=== PATIENT | male | born 1960 | race Caucasian/White ===

== ENCOUNTER 2021-06-05 16:59 | Emergency (ER) | payer BC, OTHER ==
[~2021-06-05] VITALS: Ht 193 cm; Wt 135.2 kg
[2021-06-05 17:25] VITALS: BP 140/58
[2021-06-05] MEDS ORDERED: LIDOCAINE 1% HCL (LOCAL ANESTH.) INJ 20ML MDV IJ ONE (17:30)
[2021-06-05] MEDS ORDERED: TETANUS-DIPTH-ACEL PERTUSSIS 0.5ML SYR Tdap IM ONE (18:00)
[2021-06-05] MEDS ORDERED: CEPH500T PO (18:08)
== END 2021-06-05 18:13 | disposition home or self-care (01) ==
LOC: ER 16:59
DX: S81.811A Laceration without foreign body, right lower leg, initial encounter (principal); E11.9 Type 2 diabetes mellitus without complications; I10 Essential (primary) hypertension; Z98.61 Coronary angioplasty status; W26.9XXA Contact with unspecified sharp object(s), initial encounter; Y93.89 Activity, other specified; Y92.89 Other specified places as the place of occurrence of the external cause; Y99.8 Other external cause status
CPT/HCPCS: 12004; 90471; 90715; 99283; J2001

== ENCOUNTER 2022-02-26 11:08 | Emergency (ER) | payer BC ==
[~2022-02-26] VITALS: Ht 193 cm; Wt 136.6 kg
[~2022-02-26 11:08] MED LIST: CEPH500T PO
[2022-02-26] MEDS ORDERED: PANTOPRAZOLE 40 MG/10 ML VIAL INJ IV ONE (11:45)
[2022-02-26] MEDS ORDERED: ONDANSETRON HCL 4 MG/2 ML VIAL IV ONE ×2 (11:45→20:00)
[2022-02-26] MEDS ORDERED: MORPHINE SULFATE 4 MG/ML SYR/VIAL IV ONE ×2 (11:45→20:00)
[2022-02-26] MEDS ORDERED: SODIUM CHLORIDE 0.9% 1,000 ML IVB ONE (11:45)
[2022-02-26 12:36] LABS: Basophils # (auto) 0 10 ^3/uL (0-0.2); Basophils % (auto) 0.2 % (0.0-2.0); Eosinophils # (auto) 0 10 ^3/uL (0-0.8); Eosinophils % (auto) 0.1 % (0.0-7.0); Hematocrit 50.8 % (41.0-53.0); Hemoglobin 17.1 g/dL (13.5-17.5); Lymphocytes # (auto) 0.9 10 ^3/uL (0.4-5.4); Lymphocytes % (auto) 5.9 % (10.0-50.0); Mean Corpuscular Hemoglobin 31.4 pg (28.0-32.0); Mean Corpuscular Hgb Conc. 33.7 g/dL (32.0-36.0); Monocytes # (auto) 1.4 10 ^3/uL (0-1.3); Monocytes % (auto) 9.6 % (0.0-12.0); Neutrophils # (auto) 12.4 10 ^3/uL (1.6-8.6); Neutrophils % (auto) 84.2 % (37.0-80.0); Nucleated Red Blood Cells % 0.2 %; Red Blood Cells 5.47 10^6/uL (4.5-5.90); Red Cell Distribution Width 13.4 % (11.8-14.3); White Blood Cell 14.7 10^3/uL (4.4-10.8)
[2022-02-26 12:48] LABS: Albumin 4.1 g/dL (3.4-5.0); Calcium 8.8 mg/dL (8.5-10.1)
[2022-02-26 12:53] LABS: BUN/Creatinine Ratio 9.6; Total Protein 7.2 g/dL (6.4-8.2)
[2022-02-26 18:23] LABS: Urine Bacteria NONE SEEN /hpf (None Seen); Urine Blood Negative /uL (Negative); Urine Mucus FEW (None Seen); Urine Specific Gravity 1.028 (1.001-1.035); Urine WBC 2 /hpf (0 - 3)
[2022-02-26] MEDS ORDERED: SODIUM CHLORIDE 0.9% 1,000 ML IV ONE (20:00)
[2022-02-27] MEDS ORDERED: fentaNYL CITRATE 100 MCG/2 ML VL IV ONE ×2 (00:15→05:15)
[2022-02-27] MEDS ORDERED: ONDANSETRON HCL 4 MG/2 ML VIAL IV ONE ×2 (11:45→15:45)
[2022-02-27] MEDS ORDERED: MORPHINE SULFATE 4 MG/ML SYR/VIAL IV ONE ×2 (11:45→15:45)
[2022-02-27] MEDS ORDERED: SODIUM CHLORIDE 0.9% 1,000 ML IV ONE (11:45)
[2022-02-27 20:21] VITALS: BP 159/83
== END 2022-02-27 21:00 | disposition short-term general hospital (02) ==
LOC: ER 11:08
DX: K81.0 Acute cholecystitis (principal); E11.9 Type 2 diabetes mellitus without complications; I10 Essential (primary) hypertension; I25.2 Old myocardial infarction; Z98.61 Coronary angioplasty status; Z20.822 Contact with and (suspected) exposure to COVID-19
CPT/HCPCS: 36415; 74176; 76705; 80053; 81001; 82150; 83690; 84484; 85025; 87426; 93005; 96361; 96374; 96375; 96376; 99285; C9113; J2270; J2405; J3010; J7030

== ENCOUNTER 2024-07-13 10:16 | Inpatient (IN) | payer BC, OTHER ==
[~2024-07-13] VITALS: Ht 193 cm; Wt 135.3 kg
--- NOTE | 2024-07-13 10:32 | ECG ---
[facility] Test Date: 2024-07-13 Test Time: 10:20:16 Pat Name: DYLON PLUNKETT Department: ER Room: 0270T Gender: M Clinical Project Coordinator: GIORGIO : 1960 Requested By: SUMANTH GALAN Order Number: [id number] Reading MD: Dmitry Paul Measurements Intervals [place] Rate: 140 P: 0 NH: 0 QRS: 62 QRSD: 147 T: 25 QT: 341 QTc: 521 Interpretive Statements Atrial fibrillation Right bundle branch block Inferior infarct, old Electronically Signed On 07-14-2024 13:16:27 PST by Dmitry Paul Please click the below link to view image of tracing.
[2024-07-13 10:54] LABS: Basophils # (auto) 0 10 ^3/uL (0-0.2); Basophils % (auto) 0.4 % (0.0-2.0); Eosinophils # (auto) 0.3 10 ^3/uL (0-0.8); Eosinophils % (auto) 2.8 % (0.0-7.0); Hematocrit 47.7 % (41.0-53.0); Hemoglobin 16.6 g/dL (13.5-17.5); Lymphocytes # (auto) 1.7 10 ^3/uL (0.4-5.4); Lymphocytes % (auto) 18.8 % (10.0-50.0); Mean Corpuscular Hemoglobin 31.7 pg (28.0-32.0); Mean Corpuscular Hgb Conc. 34.8 g/dL (32.0-36.0); Mean Corpuscular Volume 91.3 fL (80.0-100.0); Monocytes # (auto) 0.8 10 ^3/uL (0-1.3); Monocytes % (auto) 9.2 % (0.0-12.0); Neutrophils # (auto) 6.3 10 ^3/uL (1.6-8.6); Neutrophils % (auto) 68.8 % (37.0-80.0); Nucleated Red Blood Cells % 0.1 %; Platelet Count (auto) 250 10^3/uL (140-450); Red Blood Cells 5.23 10^6/uL (4.5-5.90); Red Cell Distribution Width 13.1 % (11.8-14.3); White Blood Cell 9.1 10^3/uL (4.4-10.8)
--- NOTE | 2024-07-13 10:58 | DVH ---
XY CHEST PORTABLE, HISTORY: PALPITATIONS COMPARISON: None None TECHNICAL DATA: 1 view of the chest was obtained. FINDINGS: Lines and tubes: None Cardiomediastinal silhouette: normal Pulmonary vasculature: normal Lung expansion: normal Lung airspace: normal Lung interstitium: normal Pleura: normal Pneumothorax: no Bones: Unremarkable Other: no IMPRESSION: No acute intrathoracic abnormality.
[2024-07-13 11:10] LABS: INR 0.99 (0.9-1.15); Partial Thromboplastin Time 28.2 SEC (24.5-34.5); Prothrombin Time 10.5 sec (9.3-11.8)
--- NOTE | 2024-07-13 11:19 | ED.PDOC ---
HPI Comments Rodolfo Madrigal this is a 64-year-old male patient who presents to ED referred by PCP due to tachycardia (140 beats per minute) with chief complaint of palpitation, dyspnea and fatigue and functional class II which has been occurring for the past month. Denies syncope, chest pain, nausea, vomiting, diarrhea, bleeding, sick contacts, recent travel and motor or sensory deficits. 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 Surgical history: Spinal surgery, knee surgery, coronary angiography with stent placement on 2013 Family history: Brother of [place] (per patient he had polysubstance abuse), brother was also diabetic. Hypertension father and sister. Social history: Lives in [facility] with . Denies current tobacco, alcohol and other drug abuse Allergies: Azithromycin, cefuroxime and penicillin (per patient he has taken Keflex with no problems) Home medication: Percocet 10 mg p.o. Q6hs, Brilinta, atorvastatin, duloxetine, levothyroxine, hydrochlorothiazide 25 mg p.o. daily, valsartan 80 mg p.o. daily. Previously was on metoprolol and testosterone but was discontinued few months ago. Chief Complaint: Palpitations Time Seen by MD: 10:39 Primary Care Provider: Vanesa Allergies: Coded Allergies: Azithromycin (Verified Allergy, Severe, FACIAL SWELLING, 02/26/22) Cefuroxime (Verified Allergy, Severe, FACIAL SWELLING , 02/26/22) Penicillins (Verified Allergy, Severe, FACIAL SWELLING , 02/26/22) Home Meds Active Scripts Cephalexin Monohydrate (Cephalexin) 500 Mg Tab, 500 MG PO QID for 10 Days, #40 TAB Prov:LEONOR LOVE 06/05/21 Mode of Arrival: Ambulatory Past Medical History PAST MEDICAL HISTORY: DM, Gallstones, High Lipids, HTN, [place], Thyroid Surgical History: Hernia Repair, PTCA Family History Family History: Family hx of DM Social History Smoker: Non-Smoker Alcohol: Occasionally Drugs: Denies Drug Use Lives In: Home Physical Exam General Appearance: No Apparent Distress, Normal HEENT: Normal ENT Inspection, Pharynx Normal, TMs Normal Neck: Full Range of Motion, Non-Tender, Normal, Normal Inspection Respiratory: Chest Non-Tender, Lungs Clear, No Accessory Muscle Use, No Respiratory Distress, Normal Breath Sounds Cardiovascular: Irregular, No Edema, No JVD, No Murmur, No Gallop, Normal Peripheral Pulses, Tachycardia Breast Exam: Deferred Gastrointestinal: No Organomegaly, Non Tender, No Pulsatile Mass, Normal Bowel Sounds, Soft Genitalia: Deferred Pelvic: Deferred Rectal: Deferred Extremities: No calf tenderness, Normal capillary refill, Normal inspection, Normal range of motion, Non-tender, No pedal edema Neurologic: Alert, 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 Was a procedure done?: No CP Differential Dx Differential Diagnosis: A-fib, A-Flutter, Heart Failure, Hyperthyroidism, [place], PSVT X-Ray, Labs, Meds, VS Vital Signs Date Time Temp Pulse Resp B/P (MAP) Pulse Ox O2 Delivery O2 Flow Rate FiO2 07/13/24 10:48 97.5 140 16 130/62 (84) 96 07/13/24 10:20 140 Lab Test 07/13/24 10:23 Range/Units White Blood Count 9.1 4.4-10.8 10^3/uL Red Blood Count 5.23 4.5-5.90 10^6/uL Hemoglobin 16.6 13.5-17.5 g/dL Hematocrit 47.7 41.0-53.0 % Mean Corpuscular Volume 91.3 80.0-100.0 fL Mean Corpuscular Hemoglobin 31.7 28.0-32.0 pg Mean Corpuscular Hemoglobin Concent 34.8 32.0-36.0 g/dL Red Cell Distribution Width 13.1 11.8-14.3 % Platelet Count 250 140-450 10^3/uL Mean Platelet Volume 9.1 6.9-10.8 fL Neutrophils (%) (Auto) 68.8 37.0-80.0 % Lymphocytes (%) (Auto) 18.8 10.0-50.0 % Monocytes (%) (Auto) 9.2 0.0-12.0 % Eosinophils (%) (Auto) 2.8 0.0-7.0 % Basophils (%) (Auto) 0.4 0.0-2.0 % Neutrophils # (Auto) 6.3 1.6-8.6 10 ^3/uL Lymphocytes # (Auto) 1.7 0.4-5.4 10 ^3/uL Monocytes # (Auto) 0.8 0-1.3 10 ^3/uL Eosinophils # (Auto) 0.3 0-0.8 10 ^3/uL Basophils # (Auto) 0 0-0.2 10 ^3/uL Nucleated Red Blood Cells 0.1 % Prothrombin Time 10.5 9.3-11.8 sec Prothrombin Time INR 0.99 0.9-1.15 Activated Partial Thromboplast Time 28.2 24.5-34.5 SEC D-Dimer, Quantitative 0.32 0.0-0.49 mg/L FEU Sodium Level 137 136-145 mmol/L Potassium Level 4.1 3.5-5.1 mmol/L Chloride Level 102 98-107 mmol/L Carbon Dioxide Level 25 20-31 mmol/L Anion Gap 10 5-15 Blood Urea Nitrogen 12 9-23 mg/dL Creatinine 0.93 0.700-1.30 mg/dL Glomerular Filtration Rate Calc 91 >90 mL/min BUN/Creatinine Ratio 12.9 10.0-20.0 Serum Glucose 125 H 74-106 mg/dL Calcium Level 10.5 H 8.7-10.4 mg/dL Phosphorus Level Pending Magnesium Level Pending Total Bilirubin 0.9 0.2-1.0 mg/dL Aspartate Amino Transferase (AST) 52 H 13-40 U/L Alanine Aminotransferase (ALT) 73 H 7-40 U/L Alkaline Phosphatase 108 46-116 U/L Troponin I High Sensitivity 8 </=54 ng/L Total Protein 7.8 5.7-8.2 g/dL Albumin 5.0 H 3.2-4.8 g/dL Thyroid Stimulating Hormone (TSH) Pending X-Ray, Labs, Meds, VS Comment Obtained laboratory work up and chest xRay, pending urine and echocardiogram Time of 1ST Reevaluation: 11:52 Reevaluation 1ST: Unchanged Patient Education/Counseling: Diagnosis, Treatment, Prognosis Family Education/Counseling: Diagnosis, Treatment, Prognosis Departure 1 Departure Time of Disposition: 11:52 Impression: Primary Impression: Atrial fibrillation Disposition: 09 ADMITTED INPATIENT Admit to: Tele Condition: Serious Additional Instructions: Reviewed laboratory work up, vital signs (persists with AFIB RVR) and chest xray. PEnding echocardiogram and urine results. Patient will benefit from admission to titrate beta blockers, optimize medical therapy and obtain ech ocardiogram to evaluate LVEF. Critical Care Note Critical Care Time?: No Stability Stability form required: No Heart Score Heart Score: Heart Score Response (Comments) Value History Moderate Suspicious 1 EKG Repolarization Disturb 1 Age >65 2 Risk Factors >3 or Hx ASHD 2 Troponin Normal limit 0 Total 6 SIMON CRAWFORD RESIDENT Jul 13, 2024 11:19
[2024-07-13 11:23] LABS: Alkaline Phosphatase 108 U/L (46-116); Anion Gap 10 (5-15); BUN/Creatinine Ratio 12.9 (10.0-20.0); Bilirubin, Total 0.9 mg/dL (0.2-1.0); Blood Urea Nitrogen 12 mg/dL (9-23); Carbon Dioxide 25 mmol/L (20-31); Chloride 102 mmol/L (98-107); Potassium 4.1 mmol/L (3.5-5.1); Sodium 137 mmol/L (136-145); Total Protein 7.8 g/dL (5.7-8.2)
[2024-07-13 11:29] LABS: Alanine Aminotransferase 73 U/L (7-40); Aspartate Aminotransferase 52 U/L (13-40); Calcium 10.5 mg/dL (8.7-10.4); Glucose 125 mg/dL (74-106)
[2024-07-13 11:45] LABS: Phosphorus 3.6 mg/dL (2.4-5.1)
[2024-07-13] MEDS: DIGOXIN (250MCG/ML) 2 ML AMPULE IV ONE (12:07)
[2024-07-13 13:00] VITALS: PULSE 140
--- NOTE | 2024-07-13 14:07 | DVHSR ---
APPROVED REPORT EXAM: LIMITED Two-dimensional and M-mode echocardiogram with Doppler and color Doppler. Blood Pressure: 130/62 mmHg INDICATION Atrial Fibrillation New Onset RISK FACTORS Obesity: Height: 6' 4", Weight: 298 DIMENSIONS LVDd4.9 (3.8-5.7cm)LA (2D)4.2 (1.9-4.0cm)Aortic Root4.0 (2.0-3.7cm) LVDs3.4 (2.5-4.0cm)LA (MM) (1.9-4.0cm)Aortic Cusp Exc2.3 (1.5-2.0cm) EF (%) 50.0 (55-70%)Rt. Atrium4.3 (1.9-4.0cm)Asc. Aorta cm IVSd1.3 (0.7-1.1cm)RV (D) (1.8-2.4cm) PWd1.3 (0.7-1.1cm) Mitral Valve MitralMitral Stenosis E wave0.80m/sMV Mean GR.mmHg A wave1.10m/sMV Peak GR.mmHg E/A ratio0.72D MVAcm2 Aortic Valve Aortic ValveAortic Stenosis V10.60m/James Mean GR.2mmHg V20.90m/James Peak GR.3mmHg LVOT Diameter2.5 (1.8-2.4cm)Doppler AVA3.27cm2 LEFT VENTRICLE The left ventricle is of normal size. Wall thickness is mildly increased. Ejection fraction is tricia mated at 45-50%. Patient was tachycardic at the time of the study with heart rate of 130 beats per m inute. Endocardial definition is poor to assess for wall motion. Diastolic function is indeterminat e. RIGHT VENTRICLE Not well visualized. Likely of normal size and systolic function. ATRIA Both atria are likely mildly dilated in size. Intra-atrial septum is not well visualized. MITRAL VALVE Not well visualized. No significant regurgitation. PULMONIC VALVE Not well visualized. TRICUSPID VALVE Not well visualized. No evidence of significant regurgitation. PA systolic pressure is not adequate ly estimated. AORTIC VALVE Not well visualized. No evidence of significant stenosis or regurgitation. GREAT VESSELS The aortic root measures 4.0 cm at the level of the sinuses of Valsalva. Proximal ascending aorta is n't well visualized. PERICARDIAL EFFUSION No significant pericardial effusion. IVC is not visualized. Other Information Quality : Technically LimitedRhythm : Atrial Fibrillation Technically limited study due to body habitus. Conclusion The study is very technically limited. The left ventricle is of normal size and systolic function is mildly decreased. Ejection fraction is estimated at 45-50%. The right ventricle is likely of normal size and systolic function. No evidence of hemodynamically significant valvular disease. PA systolic pressure isn't adequately estimated. No significant pericardial effusion.
[2024-07-13] MEDS: dilTIAZem 25 MG/5 ML VIAL IV ONE (14:27)
--- NOTE | 2024-07-13 14:53 | DVHHP2 ---
Admitting Diagnosis: Palpitation History of Present Illness HPI Comments Rodolfo Madrigal this is a 64-year-old male patient who presents to ED referred by PCP due to tachycardia (140 beats per minute) with chief complaint of palpitation, dyspnea and fatigue and functional class II which has been occurring for the past month. Denies syncope, chest pain, nausea, vomiting, diarrhea, bleeding, sick contacts, recent travel and motor or sensory deficits. 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 Surgical history: Spinal surgery, knee surgery, coronary angiography with stent placement on 2013 Family history: Brother of [place] (per patient he had polysubstance abuse), brother was also diabetic. Hypertension father and sister. Social history: Lives in [facility] with . Denies current tobacco, alcohol and other drug abuse Allergies: Azithromycin, cefuroxime and penicillin (per patient he has taken Keflex with no problems) Home medication: Percocet 10 mg p.o. Q6hs, Brilinta, atorvastatin, duloxetine, levothyroxine, hydrochlorothiazide 25 mg p.o. daily, valsartan 80 mg p.o. daily. Previously was on metoprolol and testosterone but was discontinued few months ago. PAST MEDICAL HISTORY: DM, Gallstones, High Lipids, HTN, [place], Thyroid Surgical History: Hernia Repair, PTCA Family History Family History: Family hx of DM Social History Smoker: Non-Smoker Alcohol: Occasionally Drugs: Denies Drug Use Lives In: Home Allergies: Coded Allergies: Azithromycin (Verified Allergy, Severe, FACIAL SWELLING, 02/26/22) Cefuroxime (Verified Allergy, Severe, FACIAL SWELLING , 02/26/22) Penicillins (Verified Allergy, Severe, FACIAL SWELLING , 02/26/22) Home Meds Active Scripts Cephalexin Monohydrate (Cephalexin) 500 Mg Tab, 500 MG PO QID for 10 Days, #40 TAB Prov:LEONOR LOVE 06/05/21 Current Medications Current Medications Medications (Trade) Dose Ordered Sig/Will Route PRN Reason Start Time Stop Time Status Last Admin Enoxaparin Sodium (Lovenox) 140 mg Q12HR SC 07/13/24 22:00 UNV Enoxaparin Sodium (Lovenox) 140 mg Q12HR SC 07/13/24 22:00 07/13/24 14:51 DC Metoprolol Succinate (Toprol Xl) 25 mg DAILY PO 07/14/24 10:00 Aspirin 81 mg DAILY PO 07/14/24 10:00 Atorvastatin Calcium (Lipitor) 40 mg HS PO 07/13/24 22:00 Oxycodone/ Acetaminophen (Percocet 5/ 325MG Tablet) 2 tab Q6HP PRN PO MILD PAIN (1-3 PAIN SCALE) 07/13/24 12:00 Duloxetine HCl (Cymbalta Capsule) 60 mg BID PO 07/13/24 22:00 Hydrochlorothiazide (hydroCHLOROthiazide TABLET) 25 mg DAILY PO 07/14/24 10:00 Valsartan (Diovan) 80 mg DAILY PO 07/14/24 10:00 Apixaban (Eliquis) 5 mg BID PO 07/13/24 22:00 UNV Diltiazem HCl 100 ml @ 5 mls/hr Q20H IV 07/13/24 15:00 UNV Vital Signs Vital Signs Date Time Temp Pulse Resp B/P (MAP) Pulse Ox O2 Delivery O2 Flow Rate FiO2 07/13/24 13:46 99.0 131 20 119/67 (84) 97 99.0 07/13/24 13:00 Room Air* 0 21 Physical Exam Generally-64 years old male, well nourished, well developed. No apparent distress HEENT-atraumatic normocephalic Heart regular rate and regular Lungs clear to auscultate Abdomen soft nontender nondistended Musculoskeletal-no edema cyanosis Neuro-AO x3, no focal deficit Results Labs Test 07/13/24 14:29 07/13/24 10:23 Range/Units White Blood Count 9.1 4.4-10.8 10^3/uL Red Blood Count 5.23 4.5-5.90 10^6/uL Hemoglobin 16.6 13.5-17.5 g/dL Hematocrit 47.7 41.0-53.0 % Mean Corpuscular Volume 91.3 80.0-100.0 fL Mean Corpuscular Hemoglobin 31.7 28.0-32.0 pg Mean Corpuscular Hemoglobin Concent 34.8 32.0-36.0 g/dL Red Cell Distribution Width 13.1 11.8-14.3 % Platelet Count 250 140-450 10^3/uL Mean Platelet Volume 9.1 6.9-10.8 fL Neutrophils (%) (Auto) 68.8 37.0-80.0 % Lymphocytes (%) (Auto) 18.8 10.0-50.0 % Monocytes (%) (Auto) 9.2 0.0-12.0 % Eosinophils (%) (Auto) 2.8 0.0-7.0 % Basophils (%) (Auto) 0.4 0.0-2.0 % Neutrophils # (Auto) 6.3 1.6-8.6 10 ^3/uL Lymphocytes # (Auto) 1.7 0.4-5.4 10 ^3/uL Monocytes # (Auto) 0.8 0-1.3 10 ^3/uL Eosinophils # (Auto) 0.3 0-0.8 10 ^3/uL Basophils # (Auto) 0 0-0.2 10 ^3/uL Nucleated Red Blood Cells 0.1 % Prothrombin Time 10.5 9.3-11.8 sec Prothrombin Time INR 0.99 0.9-1.15 Activated Partial Thromboplast Time 28.2 24.5-34.5 SEC D-Dimer, Quantitative 0.32 0.0-0.49 mg/L FEU Sodium Level 137 136-145 mmol/L Potassium Level 4.1 3.5-5.1 mmol/L Chloride Level 102 98-107 mmol/L Carbon Dioxide Level 25 20-31 mmol/L Anion Gap 10 5-15 Blood Urea Nitrogen 12 9-23 mg/dL Creatinine 0.93 0.700-1.30 mg/dL Glomerular Filtration Rate Calc 91 >90 mL/min BUN/Creatinine Ratio 12.9 10.0-20.0 Serum Glucose 125 H 74-106 mg/dL Calcium Level 10.5 H 8.7-10.4 mg/dL Phosphorus Level 3.6 2.4-5.1 mg/dL Magnesium Level 2.0 1.6-2.6 mg/dL Total Bilirubin 0.9 0.2-1.0 mg/dL Aspartate Amino Transferase (AST) 52 H 13-40 U/L Alanine Aminotransferase (ALT) 73 H 7-40 U/L Alkaline Phosphatase 108 46-116 U/L B-Type Natriuretic Peptide 27.71 0-100 pg/mL Total Protein 7.8 5.7-8.2 g/dL Albumin 5.0 H 3.2-4.8 g/dL Thyroid Stimulating Hormone (TSH) 2.50 0.55-4.78 uIU/mL Primary Diagnosis New onset AFib RVR Plan Status post Cardizem IV. Heart rate persistent in 130th two. EKG shows AFib with RVR Resume beta-melanie and home meds. Check vascular score greater than three Patient agreeable with Eliquis. Start Cardizem drip for heart rate goal less than 110 Cardiology consult Check echo of the heart TSH within normal range More than heart rate Full code Cardiac diet Eliquis for DVT prophylaxis Prophylaxis needed Plan discussed with: Patient Date of Service: Jul 13, 2024 Billing Provider: CLIFTON WASHBURN MD Common Visit Codes: [id number] INP/OBS CARE (HIGH), [id number] CARE 30- 74 MIN CLIFTON WASHBURN MD Jul 13, 2024 14:53
[2024-07-13] MEDS ORDERED: DOCUSATE SOD 100 MG CAP PO PRN (15:00)
[2024-07-13] MEDS ORDERED: dilTIAZem 125mg/125ml BAG KIT 100 ML IV SCH (15:00)
[2024-07-13] MEDS ORDERED: HYDROcodone-ACET 5/325MG TAB PO PRN (15:00)
[2024-07-13] MEDS ORDERED: ONDANSETRON HCL 4 MG/2 ML VIAL IV PRN (15:00)
[2024-07-13] MEDS ORDERED: ACETAMINOPHEN 325 MG TAB PO PRN ×2 (15:00→15:30)
[2024-07-13] MEDS: OXYCODONE W/ ACETAMINOPHEN 5/325MG TABLET PO PRN ×2 (15:14→22:13)
--- NOTE | 2024-07-13 16:43 | DVHINCON2 ---
Date Seen: Jul 13, 2024 Referring Physician MD Shakir Reason for Consultation Afib with RVR History of Present Illness This is a 64-year-old male patient who presents to emergency room with chief complaint of tachycardia. The patient reports he was being seen at his primary physician's office for a routine physical, when he was found to be tachycardic. The patient was urged to come to the emergency room for further evaluation. Upon emergency room arrival, a twelve lead electrocardiogram was obtained and revealed atrial fibrillation with rapid ventricular response and right bundle branch block. The patient denies any cardiac symptoms, but does report feeling fatigued for the last few weeks. Serial troponin levels have been negative. Initial BNP level of 27.71pg/mL. Significant past medical history includes coronary artery disease status post PTCA x1 CEHT in 2012 (on Brilinta), unspecified atrial fibrillation (not on NOAC), myocardial infarction, hypertension, hyperlipidemia, type 2 diabetes mellitus, chronic back pain, and morbid obesity. The patient reports being previously diagnosed with atrial fibrillation but was told that it was under control. He denies taking any NOAC therapy or rate control at home. He does not follow up with a senior administrative support in the outpatient setting. Past Medical History Past medical history reviewed. No other significant than mentioned above. Past Surgical History Left knee replacement Multiple lumbar surgeries Cholecystectomy Family History Family history reviewed. Social History Denies the use of tobacco, alcohol or illicit drugs. Allergies: Coded Allergies: Azithromycin (Verified Allergy, Severe, FACIAL SWELLING, 02/26/22) Cefuroxime (Verified Allergy, Severe, FACIAL SWELLING , 02/26/22) Penicillins (Verified Allergy, Severe, FACIAL SWELLING , 02/26/22) Home Meds Active Scripts Cephalexin Monohydrate (Cephalexin) 500 Mg Tab, 500 MG PO QID for 10 Days, #40 TAB Prov:LEONOR LOVE 06/05/21 Home Meds Home medications reviewed. Current Medications Current Medications Medications (Trade) Dose Ordered Sig/Will Route PRN Reason Start Time Stop Time Status Last Admin Enoxaparin Sodium (Lovenox) 140 mg Q12HR SC 07/13/24 22:00 UNV Enoxaparin Sodium (Lovenox) 140 mg Q12HR SC 07/13/24 22:00 07/13/24 14:51 DC Metoprolol Succinate (Toprol Xl) 25 mg DAILY PO 07/14/24 10:00 Aspirin 81 mg DAILY PO 07/14/24 10:00 Atorvastatin Calcium (Lipitor) 40 mg HS PO 07/13/24 22:00 Oxycodone/ Acetaminophen (Percocet 5/ 325MG Tablet) 2 tab Q6HP PRN PO MILD PAIN (1-3 PAIN SCALE) 07/13/24 12:00 07/13/24 15:25 DC 07/13/24 15:14 Duloxetine HCl (Cymbalta Capsule) 60 mg BID PO 07/13/24 22:00 Hydrochlorothiazide (hydroCHLOROthiazide TABLET) 25 mg DAILY PO 07/14/24 10:00 Valsartan (Diovan) 80 mg DAILY PO 07/14/24 10:00 Apixaban (Eliquis) 5 mg BID PO 07/13/24 22:00 Diltiazem HCl 100 ml @ 5 mls/hr Q20H IV 07/13/24 15:00 07/13/24 14:59 DC Sodium Chloride (Saline Lock Ns) 10 ml Q8HR IV 07/13/24 22:00 Docusate Sodium (Colace Capsule) 100 mg BIDPRN PRN PO FOR CONSTIPATION 07/13/24 15:00 Acetaminophen (Tylenol Tablet) 650 mg Q6HP PRN PO PAIN SCALE 1-3 OR TEMP>100.4 07/13/24 15:00 07/13/24 15:24 DC Acetaminophen/ Hydrocodone Bitart ([place] 5/325MG Tab) 1 tab Q4HP PRN PO MODERATE PAIN (4-6 PAIN SCALE) 07/13/24 15:00 Ondansetron HCl (Zofran) 4 mg Q4HP PRN IV NAUSEA / VOMITING 07/13/24 15:00 Acetaminophen (Tylenol Tablet) 650 mg Q6HP PRN PO PAIN SCALE 1-3 OR TEMP>100.4 07/13/24 15:30 Oxycodone/ Acetaminophen (Percocet 5/ 325MG Tablet) 2 tab Q6HP PRN PO for severe pain (7-10) 07/13/24 15:30 Review of Systems Constitutional: Generalized weakness Ears, Nose, & Throat: No symptom reported Eyes: No symptom reported Neurological: No symptoms reported Pulmonary/Respiratory: No symptoms reported Cardiovascular: No symptom reported Gastrointestinal: No symptom reported Genitourinary: No symptom reported Musculoskeletal: No symptom reported Skin: No symptom reported Psychiatric: No symptom reported Endocrine: No symptom reported Hematologic/Lymphatic: No symptom reported Vital Signs Vital Signs Date Time Temp Pulse Resp B/P (MAP) Pulse Ox O2 Delivery O2 Flow Rate FiO2 07/13/24 15:49 129 18 110/68 (82) 96 07/13/24 13:46 99.0 99.0 07/13/24 13:00 Room Air* 0 21 Physical Exam General Appearance: Cooperative. Obese Pulmonary/Respiratory: Clear, bilateral breaths sounds. Cardiovascular/Chest: Irregular rate and rhythm. Peripheral Pulses: 2+ Radial (R). 2+ Radial (L). 2+ Pedal (R). 2+ Pedal (L) Abdominal Exam: Normal bowel sounds. Ankle Exam: Negative ankle edema Lower extremities: Negative lower extremity edema Neuro/Mental Status: A/OX4, coherent. Thoughts/Psych: Normal thought pattern. Appropriate mood and affect. Good judgment and insight. Appearance: No acute distress. Skin Exam: Normal inspection. Normal color. Warm and dry. Labs/Diagnostic Data Labs Test 07/13/24 14:29 07/13/24 10:23 Range/Units Troponin I High Sensitivity 8 </=54 ng/L White Blood Count 9.1 4.4-10.8 10^3/uL Red Blood Count 5.23 4.5-5.90 10^6/uL Hemoglobin 16.6 13.5-17.5 g/dL Hematocrit 47.7 41.0-53.0 % Mean Corpuscular Volume 91.3 80.0-100.0 fL Mean Corpuscular Hemoglobin 31.7 28.0-32.0 pg Mean Corpuscular Hemoglobin Concent 34.8 32.0-36.0 g/dL Red Cell Distribution Width 13.1 11.8-14.3 % Platelet Count 250 140-450 10^3/uL Mean Platelet Volume 9.1 6.9-10.8 fL Neutrophils (%) (Auto) 68.8 37.0-80.0 % Lymphocytes (%) (Auto) 18.8 10.0-50.0 % Monocytes (%) (Auto) 9.2 0.0-12.0 % Eosinophils (%) (Auto) 2.8 0.0-7.0 % Basophils (%) (Auto) 0.4 0.0-2.0 % Neutrophils # (Auto) 6.3 1.6-8.6 10 ^3/uL Lymphocytes # (Auto) 1.7 0.4-5.4 10 ^3/uL Monocytes # (Auto) 0.8 0-1.3 10 ^3/uL Eosinophils # (Auto) 0.3 0-0.8 10 ^3/uL Basophils # (Auto) 0 0-0.2 10 ^3/uL Nucleated Red Blood Cells 0.1 % Prothrombin Time 10.5 9.3-11.8 sec Prothrombin Time INR 0.99 0.9-1.15 Activated Partial Thromboplast Time 28.2 24.5-34.5 SEC D-Dimer, Quantitative 0.32 0.0-0.49 mg/L FEU Sodium Level 137 136-145 mmol/L Potassium Level 4.1 3.5-5.1 mmol/L Chloride Level 102 98-107 mmol/L Carbon Dioxide Level 25 20-31 mmol/L Anion Gap 10 5-15 Blood Urea Nitrogen 12 9-23 mg/dL Creatinine 0.93 0.700-1.30 mg/dL Glomerular Filtration Rate Calc 91 >90 mL/min BUN/Creatinine Ratio 12.9 10.0-20.0 Serum Glucose 125 H 74-106 mg/dL Calcium Level 10.5 H 8.7-10.4 mg/dL Phosphorus Level 3.6 2.4-5.1 mg/dL Magnesium Level 2.0 1.6-2.6 mg/dL Total Bilirubin 0.9 0.2-1.0 mg/dL Aspartate Amino Transferase (AST) 52 H 13-40 U/L Alanine Aminotransferase (ALT) 73 H 7-40 U/L Alkaline Phosphatase 108 46-116 U/L B-Type Natriuretic Peptide 27.71 0-100 pg/mL Total Protein 7.8 5.7-8.2 g/dL Albumin 5.0 H 3.2-4.8 g/dL Thyroid Stimulating Hormone (TSH) 2.50 0.55-4.78 uIU/mL Assessment Atrial fibrillation with rapid ventricular response Chronic HFmrHF, NYHA class II Coronary artery disease status post PTCA x1 CHET in 2013 (takes Brilinta) History myocardial infarction Hypertension Hyperlipidemia Type 2 diabetes mellitus Morbid obesity Plan/Recommendation We will continue with the following plan/recommendations (Dr. Ramires): * Transthoracic echocardiogram reveals EF 45-50% * [id number] VASc score: 5 points, HAS-BLED score: 2 points * Initiate NOAC therapy, Eliquis * Cardizem drip as tolerated * Hold antiarrhythmic agent given unknown duration of AFib * Single antiplatelet therapy and lipid-lowering agent * Cardiac surveillance * Monitor and replete electrolytes as needed, keep potassium greater than 4 and magnesium greater than 2 Patient seen and examined at bedside with . At this time, we will initiate a Cardizem drip and oral metoprolol. Please titrate the patient off Cardizem as tolerated. We will up-titrate metoprolol as tolerated by patient. Thank you for allowing us to care for this patient. Please call with any questions or concerns. Critical care time spent: 44 minutes This medical document was created using an electronic medical record system with voice recognition software and computerized dictation system. Although this document has been carefully reviewed, there might still be some phonetic and typographical errors. Occasional wrong-word or ``sound-alike substitutions may have occurred due to the inherent limitations of voice recognition software. These areas are purely typographical due to imperfections of the software programs and do not reflect any compromise in the patient's medical care. Please read the chart carefully and recognize, using context, where these substitutions have occurred. Plan discussed with: Patient NYHA Physical activity limitations: Class2(Slight)fatigue,sob (palpitatns, angina w activityv) Date of Service: Jul 13, 2024 Billing Provider: ROXANNA RAMIRES MD Cardiology Common Codes: 60607-ABPVPOV INP/OBS CARE (High) Cardiology Consultation Codes: 21315-[id number] CONSULT <45MIN HOA RICH Jul 13, 2024 16:42
[2024-07-13] MEDS: dilTIAZem 125mg/125ml BAG KIT 125 ML IV SCH (16:53)
[2024-07-13] MEDS: METOPROLOL TARTRATE 25 MG TAB PO ONE (16:56)
--- NOTE | 2024-07-13 19:16 | ECG ---
[facility] Test Date: 2024-07-13 Test Time: 15:15:31 Pat Name: DYLON PLUNKETT Department: ED Room: 0270T Gender: M Counselor Camp: [place] : 1960 Requested By: SUMANTH GALAN Order Number: [id number] Reading MD: Dmitry Paul Measurements Intervals [place] Rate: 132 P: 226 [place]: 80 QRS: 63 QRSD: 143 T: 33 QT: 352 QTc: 522 Interpretive Statements Sinus or ectopic atrial tachycardia Right bundle branch block Electronically Signed On 07-14-2024 13:17:00 PST by Dmitry Paul Please click the below link to view image of tracing.
[2024-07-13 19:20] VITALS: PULSE 77; O2SAT 93
[2024-07-13] MEDS: SODIUM CHLOR 0.9% PF (SALINE LOCK) 10ML VIAL/SYR IV SCH (21:57)
[2024-07-13] MEDS ORDERED: ENOXAPARIN SOD 100 MG/1 ML SYRINGE SC SCH (22:00)
[2024-07-13] MEDS ORDERED: ENOXAPARIN SOD 150 MG/1 ML SYRINGE SC SCH (22:00)
[2024-07-13] MEDS: DULoxetine HCL 30 MG CAP PO SCH (22:11)
[2024-07-13] MEDS: ATORVASTATIN 20 MG TAB PO SCH (22:14)
[2024-07-13] MEDS: APIXABAN 5 MG TAB PO SCH (22:14)
[2024-07-13 22:25] LABS: Urine Bacteria None Seen /hpf (None Seen)
[2024-07-13 22:57] LABS: Urine Blood Negative /uL (Negative); Urine Clarity Clear (Clear); Urine Color Yellow (Yellow); Urine Mucus FEW (None Seen); Urine Protein, UAD TRACE (Negative); Urine Specific Gravity 1.025 (1.001-1.035); Urine Squamous Epithelial Cell FEW /hpf (<5); Urine Urobilinogen Normal (Negative); Urine WBC < 1 /HPF (0-3)
[2024-07-13 22:58] LABS: Opiate Scree,Urine Neg (NEGATIVE)
[2024-07-13 23:10] LABS: Amphetamine Screen, Urine Neg (NEGATIVE); Barbiturate Scree,Urine Neg (NEGATIVE); Benzodiazephine Screen, Urine Neg (NEGATIVE); Cannabinoid Screen, Urine Neg (NEGATIVE); Cocaine Screen, Urine Neg (NEGATIVE); Phencyclidine Screen, Urine Neg (NEGATIVE)
[2024-07-14 04:25] LABS: Basophils # (auto) 0 10 ^3/uL (0-0.2); Basophils % (auto) 0.7 % (0.0-2.0); Eosinophils # (auto) 0.3 10 ^3/uL (0-0.8); Eosinophils % (auto) 4.3 % (0.0-7.0); Hematocrit 43.4 % (41.0-53.0); Hemoglobin 15.2 g/dL (13.5-17.5); Lymphocytes % (auto) 32.3 % (10.0-50.0); Mean Corpuscular Hemoglobin 32.2 pg (28.0-32.0); Mean Corpuscular Hgb Conc. 35.1 g/dL (32.0-36.0); Mean Corpuscular Volume 91.8 fL (80.0-100.0); Monocytes # (auto) 0.6 10 ^3/uL (0-1.3); Monocytes % (auto) 9.4 % (0.0-12.0); Neutrophils # (auto) 3.3 10 ^3/uL (1.6-8.6); Neutrophils % (auto) 53.3 % (37.0-80.0); Platelet Count (auto) 199 10^3/uL (140-450); Red Blood Cells 4.73 10^6/uL (4.5-5.90); Red Cell Distribution Width 13.1 % (11.8-14.3); White Blood Cell 6.1 10^3/uL (4.4-10.8)
[2024-07-14 04:44] LABS: Albumin 4.4 g/dL (3.2-4.8); Alkaline Phosphatase 90 U/L (46-116); Anion Gap 8 (5-15); Aspartate Aminotransferase 36 U/L (13-40); BUN/Creatinine Ratio 15.4 (10.0-20.0); Bilirubin, Total 0.8 mg/dL (0.2-1.0); Blood Urea Nitrogen 14 mg/dL (9-23); Calcium 9.7 mg/dL (8.7-10.4); Carbon Dioxide 25 mmol/L (20-31); Chloride 106 mmol/L (98-107); Cholesterol 164 mg/dL (< 200); LDL Cholesterol 99 mg/dL (< 100); Potassium 3.9 mmol/L (3.5-5.1); Sodium 139 mmol/L (136-145); Total Protein 6.8 g/dL (5.7-8.2)
[2024-07-14 04:48] LABS: Alanine Aminotransferase 61 U/L (7-40); Glucose 141 mg/dL (74-106)
[2024-07-14 04:49] LABS: HDL Cholesterol 26 mg/dL (40-59); Triglycerides 327 mg/dL (< 150)
[2024-07-14 08:03] VITALS: PULSE 83; RESP 14; O2SAT 95
[2024-07-14 09:30] VITALS: BP 119/68; PULSE 79; RESP 16; TEMP 98.9; O2SAT 95
[2024-07-14] MEDS ORDERED: APIX5TAB PO (09:42)
[2024-07-14] MEDS ORDERED: METO-6 PO (09:42)
--- NOTE | 2024-07-14 09:59 | DVHDS2 ---
New Physician D'charge PN Admitting Diagnosis Admitting Diagnosis afib rvr Discharge Diagnosis afib Operations or Procedures none Reason(s) For Hospitalization Surgery Hospital Course 64 M who comes to ER sent from PCP for tachycardia. EKG revealed afib RVR in 130s. He was admitted and started on cardizem gtt and eventually his HR was controlled and thus cardizem gtt was weaned off. He has been transitioned to PO BB and eliquis. HR now in the 80s. His CBC nml. chem panel and electrolytes also nml. Cardiac enzymes negative. He was seen by cardiology and echo showed ef 40- 45%. Patient to dc home once cleared by cardiology and he will follow up oupt with his primary private branch exchange repairer and PCP. Prescriptions for new meds sent to his pharmacy on file. [facility] to arrange for all outpt follow up. Treatment Plan Discharge Condition of Discharge Good Disposition Home Discharge Instructions Diet: Cardiac 2g Na,low cholest Activity: No Restrictions, As Tolerated Medications: see med sheet Follow Up Care Discharge Statement: "Patient was advised to return to the ER or call 911 if any headaches, dizziness, shortness of breath, chest pain, abdominal pain, bleeding, fevers, or worsening of medical condition. Patient was counseled about treatment plan, medications, possible side effects, patientverbalized understanding. All questions were answered to the best of my ability. This discharge took greater then 30 minutes in planning, reviewing documentation, counseling the patient, and discussing with other team members." JUAN PARSONS MD Jul 14, 2024 09:59
[2024-07-14] MEDS: VALSARTAN 80 MG TAB PO SCH (10:00)
[2024-07-14] MEDS: hydroCHLOROthiazide 25 MG TAB PO SCH (10:00)
[2024-07-14] MEDS ORDERED: ATOR20TA50 PO (10:03)
[2024-07-14] MEDS: METOPROLOL SUCCINATE XL 50 MG TAB PO SCH (10:23)
[2024-07-14] MEDS: ASPirin 81 mg TAB PO SCH (10:23)
[2024-07-14 11:31] VITALS: BP 119/68; PULSE 79; RESP 16; TEMP 98.9; O2SAT 95
== END 2024-07-14 12:50 | disposition home or self-care (01) | DRG 309 ==
LOC: ER 10:16 → TELE 14:56 → TELE-WESTW 07-14 09:17
PROVIDERS: ADMIT Internal Medicine; ATTEND Internal Medicine
DX: I48.20 Chronic atrial fibrillation, unspecified (principal); I50.22 Chronic systolic (congestive) heart failure; E11.9 Type 2 diabetes mellitus without complications; E66.01 Morbid (severe) obesity due to excess calories; I11.0 Hypertensive heart disease with heart failure; E78.5 Hyperlipidemia, unspecified; Z96.652 Presence of left artificial knee joint; I25.2 Old myocardial infarction; Z86.74 Personal history of sudden cardiac arrest; Z82.49 Family history of ischemic heart disease and other diseases of the circulatory system; Z95.5 Presence of coronary angioplasty implant and graft; Z83.3 Family history of diabetes mellitus; Z88.0 Allergy status to penicillin; Z88.1 Allergy status to other antibiotic agents; Z88.8 Allergy status to other drugs, medicaments and biological substances; Z90.49 Acquired absence of other specified parts of digestive tract
CPT/HCPCS: 36415; 71045; 80053; 80061; 80307; 81001; 83735; 83880; 84100; 84443; 84484; 85025; 85379; 85610; 85730; 93005; 93306; 96374; 96375; G0378